=== PATIENT | male | born 1980 | race Hispanic/Latino ===

== ENCOUNTER 2017-09-03 06:04 | Emergency (ER) | payer SELFPAY ==
[2017-09-03 06:25] VITALS: BP 120/74
--- NOTE | 2017-09-03 06:38 | C.PDOC ---
History Of Present Illness 37 y/o male, with no PMHx, presents to the ED requesting Percocet and cocaine detox. Patient states last use was yesterday. Patient states he presents for evaluation due to his probation. Otherwise denies suicidal/homicidal ideation and has no physical complaints at this time. Time Seen by Provider: 09/03/17 06:37 Chief Complaint (Nursing): Substance Abuse History Per: Patient History/Exam Limitations: no limitations Onset/Duration Of Symptoms: Hrs Current Symptoms Are (Timing): Still Present Suicide/Self Injury Attempted (Context): None Modifying Factor(s): Cocaine, Other (percocet ) Associated Symptoms: denies: Suicidal Thoughts, Suicidal Plan Involuntary Hold By: None Recent travel outside of the [place]: No Additional History Per: Patient Past Medical History Reviewed: Historical Data, Nursing Documentation, Vital Signs Vital Signs: Last Vital Signs Temp 98 F 09/03/17 07:07 Pulse 80 09/03/17 07:07 Resp 20 09/03/17 07:07 BP 120/74 09/03/17 06:23 Pulse Ox 97 09/03/17 07:07 - Medical History PMH: No Chronic Diseases Surgical History: No Surg Hx - [facility] Procedures APPLICATION OF SPLINT (07/31/14) Family History: States: Unknown Family Hx - Social History Hx Tobacco Use: No Hx Alcohol Use: No Hx Substance Use: Yes - Immunization History Hx Tetanus Toxoid Vaccination: Yes Hx Influenza Vaccination: No Hx Pneumococcal Vaccination: No Review Of Systems Psych: Positive for: Other (perocet and cocaine detox ). Negative for: Suicidal ideation Physical Exam - Physical Exam Appears: Non-toxic, No Acute Distress Skin: Normal Color, Warm, Dry Head: Atraumatic, Normacephalic Eye(s): bilateral: Normal Inspection, EOMI Nose: Normal Oral Mucosa: Moist Neck: Normal ROM, Supple Chest: Symmetrical, No Deformity, No Tenderness Cardiovascular: Rhythm Regular Respiratory: Normal Breath Sounds, No Rales, No Rhonchi, No Wheezing Gastrointestinal/Abdominal: Soft, No Tenderness Extremity: Normal ROM, Capillary Refill (less than 2 seconds ) Neurological/Psych: Oriented x3, Normal Speech, Normal Cognition ED Course And Treatment O2 Sat by Pulse Oximetry: 98 (on RA) Pulse Ox Interpretation: Normal Progress Note: scale assembly set up worker spoke to pt, informed him there is no bed availability and gave him out pt resources. Disposition - Disposition Disposition: HOME/ ROUTINE Disposition Time: 06:37 Condition: STABLE Additional Instructions: Follow up with outpatient referrals as given. Call [phone] for bed availability. Instructions: Opioid Dependence (ED) Forms: [facility] (Italian) - Clinical Impression Clinical Impression: Drug abuse - PA / PREPRINT ANALYST / Resident Statement MD/DO has reviewed & agrees with the documentation as recorded. - Scribe Statement The provider has reviewed the documentation as recorded by the Scribe (Nena Meek) All medical record entries made by the Scribe were at my direction and personally dictated by me. I have reviewed the chart and agree that the record accurately reflects my personal performance of the history, physical exam, medical decision making, and the department course for this patient. I have also personally directed, reviewed, and agree with the discharge instructions and disposition.
[2017-09-03 07:16] VITALS: PULSE 80; RESP 20; TEMP 98
[2017-09-04 04:53] VITALS: O2SAT 98
== END 2017-09-03 07:26 | disposition home or self-care (01) ==
LOC: C.ER 06:04
DX: F19.10 Other psychoactive substance abuse, uncomplicated (principal)

== ENCOUNTER 2017-09-07 00:01 | Inpatient (IN) | payer MEDICAID ==
[2017-09-07 01:13] LABS: BASO % 0.3 % (0.0-2.0); EOS # 0.1 K/uL (0.0-0.7); EOS % 1.4 % (0.0-4.0); HEMOGLOBIN 13.2 g/dL (12.0-18.0); LYMPH # 1.9 K/uL (1.0-4.3); LYMPH % 22.3 % (20.0-40.0); MEAN CELL VOLUME 95.8 fL (80.0-94.0); MEAN CORPUSCULAR HEMOGLOBIN 33.5 pg (27.0-31.0); MEAN PLATELET VOLUME 8.1 fL (7.2-11.7); MONO # 0.8 K/uL (0.0-0.8); MONO % 8.7 % (0.0-10.0); NEUT # 5.9 K/uL (1.8-7.0); NEUT % 67.3 % (50.0-75.0); RBC 3.93 Mil/uL (4.40-5.90); RED CELL DISTRIBUTION WIDTH 13.7 % (11.5-14.5); WHITE BLOOD COUNT 8.7 K/uL (4.8-10.8)
[2017-09-07 01:14] LABS: URINE BACTERIA FEW (<OCC); URINE BILIRUBIN NEGATIVE (NEGATIVE); URINE BLOOD NEGATIVE (NEGATIVE); URINE CALCIUM OXALATE CRYSTALS OCC /hpf (<OCC); URINE CLARITY Hazy (Clear); URINE COLOR Yellow (YELLOW); URINE GLUCOSE (UA) NORMAL (Normal); URINE LEUKOCYTE ESTERASE NEG Leu/uL (Negative); URINE NITRATE NEGATIVE (NEGATIVE); URINE PROTEIN 1+ mg/dL (NEGATIVE)
[2017-09-07 01:22] LABS: BARBITURATES, UR NEGATIVE (NEGATIVE); BENZODIAZEPINES, UR NEGATIVE (NEGATIVE); OPIATES, UR NEGATIVE (NEGATIVE); PHENCYCLIDINE, UR NEGATIVE (NEGATIVE)
[2017-09-07 01:38] LABS: ACETAMINOPHEN < 10.0 ug/mL (10.0-30.0); SALICYLATE < 1.0 mg/dL 1
[2017-09-07 01:39] LABS: ALB/GLOB RATIO 1.5 (1.0-2.1); ALBUMIN 4.1 g/dL (3.5-5.0); ALT/SGPT 37 U/L (21-72); AST/SGOT 30 U/L (17-59); BLOOD UREA NITROGEN 10 mg/dL (9-20); GFR AFRICAN-AMERICAN > 60; GFR NON-AFRICAN AMERICAN > 60
--- NOTE | 2017-09-07 02:26 | C.PDOC ---
Time Seen by Provider: 09/07/17 00:41 Chief Complaint (Nursing): Psychiatric Evaluation History Per: Patient Onset/Duration Of Symptoms: Days Current Symptoms Are (Timing): Still Present Suicide/Self Injury Attempted (Context): None Modifying Factor(s): Marijuana, Narcotics, Cocaine Severity: Moderate Associated Symptoms: Depression, Suicidal Thoughts. denies: Suicidal Plan Additional History Per: Prior Records Past Medical History Reviewed: Historical Data, Nursing Documentation, Vital Signs Vital Signs: Last Vital Signs Temp 97.8 F 09/07/17 00:21 Pulse 76 09/07/17 00:21 Resp 20 09/07/17 00:21 BP 114/70 09/07/17 00:21 Pulse Ox 98 09/07/17 00:21 - Medical History PMH: No Chronic Diseases - [facility] Procedures APPLICATION OF SPLINT (07/31/14) Family History: States: Unknown Family Hx - Social History Hx Tobacco Use: No Hx Alcohol Use: No Hx Substance Use: Yes - Immunization History Hx Tetanus Toxoid Vaccination: Yes Hx Influenza Vaccination: No Hx Pneumococcal Vaccination: No Review Of Systems Except As Marked, All Systems Reviewed And Found Negative. Constitutional: Negative for: Fever Cardiovascular: Negative for: Chest Pain Respiratory: Negative for: Shortness of Breath Gastrointestinal: Negative for: Vomiting, Abdominal Pain Musculoskeletal: Negative for: Neck Pain Skin: Negative for: Rash Neurological: Negative for: Weakness, Numbness Psych: Negative for: Psychosis Physical Exam - Physical Exam Appears: Non-toxic, No Acute Distress Skin: Normal Color, Warm, Dry Head: Atraumatic, Normacephalic Eye(s): bilateral: PERRL, EOMI Neck: Normal ROM, Supple Cardiovascular: Rhythm Regular Respiratory: Normal Breath Sounds, No Accessory Muscle Use Gastrointestinal/Abdominal: Soft, No Tenderness Extremity: Normal ROM Neurological/Psych: Oriented x3, Normal Motor, Normal Sensation ED Course And Treatment - Laboratory Results Result Diagrams: 09/07/17 01:04 09/07/17 01:04 Lab Interpretation: No Acute Changes O2 Sat by Pulse Oximetry: 98 Pulse Ox Interpretation: Normal Progress Note: Pt is medically stable for psychiatric admission. Disposition Counseled Patient/Family Regarding: Studies Performed, Diagnosis - Disposition Disposition: HOSPITALIZED Disposition Time: 02:25 Condition: STABLE - Clinical Impression Clinical Impression: Drug abuse, Depressive disorder Decision To Admit - Pt Status Changed To: Hospital Disposition Of: Inpatient - Admit Certification Admit to Inpatient:: After my assessment, the patient will require hospitalization for at least two midnights. This is because of the severity of symptoms shown, intensity of services needed, and/or the medical risk in this patient being treated as an outpatient. - InPatient: Physician Admission Certification: I certify that this patient requires 2 or more midnights of care for the following reason:: Psych - . Bed Request Type: Psychiatry Admitting Physician: Naomi Carter Patient Diagnosis: Drug abuse, Depressive disorder
[2017-09-07 02:42] VITALS: RESP 16
--- NOTE | 2017-09-07 03:15 | PCM.BM ---
<Sandy Delarosa - Last Filed: 09/07/17 03:06> Treatment Plan Problems - Problems identified on initial assessmt Suicidal Ideations Date Initiated: 09/07/17 Time Initiated: 03:12 Assessment reference: NA Status: Active Treatment assets and liabiliti Patient Assests: cooperative, self-reliant, ADL independent, physically healthy , negotiates basic needs, cognitively intact Patient Liabilities: financial problems, poor support system, relationship conflicts, substance abuse - Milieu Protocol Maintain good personal hygiene: daily Encourage regular showers, other Remind patient to perform daily oral care (prn), other Assist patient to perform ADL's (prn) Conduct patient checks and document Observation sheet: Q15 minutes Maintain personal safety: every shift Monitor environment for contraband/sharps , other Educate patient to report safety concerns to staff (prn) Medication safety: Monitor for expected outcome, potential side effects: every shift, Assess barriers to learning: every shift, Assess readiness for medication education: every shift <Patricia Waggoner - Last Filed: 09/08/17 14:23> Family Contact Family involvement: Famliy/SO not involved - Goals for Treatment Patient goals for treatment: "I want to go home." Discharge/Continuing Care - Education Needs Education Needs: Patient Medication, Patient Placement options, Patient Community resources - Discharge Discharge Criteria: Tolerates medication w/o severe side effects, Free of Suicidal thoughts, Reduction of target symptoms Discharge to:: Home - Treatment Team Participation Discussed with Family/SO: No Was Patient/Family/SO present at Treatment Team Meeting: Yes
[2017-09-07 05:51] VITALS: TEMP 97.8; O2SAT 99
--- NOTE | 2017-09-07 10:20 | PCM.PSYCH ---
Initial Psychiatric Evaluation - Initial Psychiatric Evaluation Type of Admission: Voluntary Legal Status: Capacity Chief Complaint (in patient's own words): I was feeling depressed and suicidal.' History of Present Illness and Precipitating Events: 7yo White man self-referred to ED reportedly c/o suicide idx while under the influence of cocaine and THC; Pt reports the following: "I've been thinking about hurting myself;" I've been depressed from getting high off drugs;" Feeling like no need for me to be in this world;" Pt has had thoughts of suicide , without plan, "on and off" for the past "couple of months"; Pt also reported recent symptoms of insomnia and fluctuating appetite; Pt stated: "Sometimes I'm overly hunger, and sometimes I can't eat"; Pt denied having a hx of suicide attempts; Pt attributed the above symptoms to the following: "Problems getting myself together" and "getting high all the time"; Pt admitted to a daily abuse of "30 to 40mg" of Percocet and "one gram" on intranasal cocaine; Pt also abuses THC "every other day"; Pt denied being homeless, but reported staying with various family members from time to time; Pt requesting admission to [address] [place] [address]. Current Medications: Active Medications Generic Name Dose Route Start Last Admin Trade Name Freq PRN Reason Stop Dose Admin Clonidine HCl 0.1 mg 09/07/17 03:56 Catapres PO Q8 PRN COWS Score More or Equal to 5 Hydroxyzine HCl 25 mg 09/07/17 03:57 Atarax PO Q8H PRN Anxiety Ibuprofen 600 mg 09/07/17 03:58 Motrin Tab PO TID PRN Pain, moderate (4-7) Loperamide HCl 2 mg 09/07/17 03:56 Imodium PO Q8 PRN Diarrhea Ondansetron HCl 4 mg 09/07/17 03:56 Zofran Tab PO Q8 PRN Nausea/Vomiting Pneumococcal Polyvalent Vaccine 0.5 ml 09/10/17 10:00 Pneumovax 23 Vaccine IM 09/10/17 10:01 .ONCE ONE Trazodone HCl 50 mg 09/07/17 03:58 Desyrel PO HS PRN Insomnia Past Psychiatric History - Past Psychiatric History Previous Treatment History: None Pertinent Medical Hx (Current Medical&Sleep Prob, Allergies): Allergies Allergy/AdvReac Type Severity Reaction Status Date / Time No Known Allergies Allergy Verified 02/27/16 20:10 No Known Home Med 09/03/17 Review of Systems - Review of Systems All systems: reviewed and no additional remarkable complaints except - Psychiatric Psychiatric: Anxiety, Irritability, Suicidal Ideation Mental Status Examination - Personal Presentation Personal Presentation: Looks stated age - Affect Affect: Constricted, Depressed - Motor Activity Motor Activity: Calm - Reliability in Providing Information Reliability in Providing Information: Good - Speech Speech: Organized - Mood Mood: Depressed, Anxious - Formal Thought Process Formal Thought Process: No Impairment - Obsessions/Compulsions Obsessions: No Compulsions: No - Cognitive Functions Orientation: Person, Place, Situation, Time Sensorium: Alert Attention/Concentration: Attentive Abstract Thinking: Bartlett Estimate of Intelligence: Below average Judgement: Imparied, as evidence by: Poor judgement, Imparied, as evidence by: Lack of insight into illness - Risk Risk: Suicidal, Diminished functioning - Strength & Assets Inventory Strength & Assets Inventory: Intelligence - Limitations Limitations: Living alone DSM 5 DX - DSM 5 DSM 5 Diagnosis: Major depressive disorder recurrent severe without psychotic features Cocaine use severe Cannabis use moderate - Recommended/Plan of Treatment Treatment Recommendations and Plan of Treatment: Major depressive disorder recurrent severe without psychotic features Cocaine use severe Cannabis use moderate CBT Psychoeducation Supportive therapy, group therapy, individual therapy Zoloft 50 mg PO Daily Neurontin 100 mg by mouth 3 times a day Trazodone 50 mg by mouth daily at bedtime Use HI for abstinence PRN meds - Smoking Cessation Smoking Cessation Initiated: No
[2017-09-07 16:19] VITALS: BP 121/69; PULSE 66
--- NOTE | 2017-09-08 10:49 | PCM.PYCHPN ---
Psychiatric Progress Note - Psychiatric Progress Note Patient Chief Complaint: I was feeling depressed and suicidal.' Mental Status Examination - Cognitive Function Orientation: Person, Place, Situation, Time - Mood Mood: Depressed, Anxious - Affect Affect: Constricted, Depressed - Formal Thought Process Formal Thought Process: No Impairment - Homicidal Ideation Homicidal Ideation: No Goal/Treatment Plan - Goal/Treatment Plan Progress Toward Problem(s) and Goals/Treatment Plan: Major depressive disorder recurrent severe without psychotic features Cocaine use severe Cannabis use moderate CBT Psychoeducation Supportive therapy, group therapy, individual therapy Zoloft 50 mg PO Daily Neurontin 100 mg by mouth 3 times a day Trazodone 50 mg by mouth daily at bedtime Use PR for abstinence PRN meds
--- NOTE | 2017-09-08 11:39 | PCM.PYCHDC ---
Mental Status Examination - Mental Status Examination Orientation: Person, Place, Situation, Time Memory: Intact Mood: Other (irate) Affect: Constricted Speech: Appropriate Attention: WNL Concentration: Poor Association: WNL Fund of Knowledge: WNL Formal Thought Process: No Impairment Suicidal Ideation: No Current Homicidal Ideation?: No Discharge Summary - Discharge Note Reason for Hospitalization: Feeling depressed, suicidal, cocaine Consultations:: List each consultation separately and include: 1. Reason for request. 2. Findings. 3. Follow-up Summary of Hospital Course include:: 1. Description of specific treatment plan utilized for patients during their course of treatmen. 2. Summarize the time- course for resolution of acute symptoms and/or regressed behaviors. 3. Describe issues identified and worked on during hospitalization. 4. Describe medication utilized. 5. Describe medical problems identified and treated. 6. Reassessment of suicide risk Summary of Hospital Course: The pt was admitted and started on treatment with psychotherapy, support, psychoeducation and medications. SD and CBT used. All the risks and benefits of medications are discussed and the patient understood and agreed. The pt improved with the treatments provided, slowly but today he suddenly demanded for d/c He was already denying any major psych issues and claimed he lied to get in . he also claimed his number ne problem is cocaine. He claimed he had an appt at [facility] and also he is not homeless and he refused meds He was intense and irritable, but not an imminent risk to anyone or himself He is made aware of the risks of leaving AMA and he understood but still left - Final Diagnosis (DSM 5) Condition upon Discharge: STABLE DSM 5: Cocaine induced mood d/o Cocaine use d/o - severe Antisocial pers. d/o - traits Disposition: AGAINST MEDICAL ADVICE
[2017-09-10] MEDS ORDERED: Pneumococcal 23-Valent Vaccine IM ONE (10:00)
[2017-09-10] MEDS ORDERED: Influenza Vaccine 60 mcg/0.5 mL SYR (4YR UP) IM ONE (10:00)
== END 2017-09-08 12:49 | disposition left against medical advice (07) | DRG 894 ==
LOC: C.ER 00:01 → C.5E 02:26
PROVIDERS: ADMIT Psychiatry & Neurology Psychiatry; ATTEND Psychiatry & Neurology Psychiatry
PROC: GZ3ZZZZ Medication Management (ICD-10-PCS; principal; 2017-09-07)
PROC: HZ89ZZZ Medication Management for Substance Abuse Treatment, Other Replacement Medication (ICD-10-PCS; 2017-09-07)
PROC: GZHZZZZ Group Psychotherapy (ICD-10-PCS; 2017-09-07)
PROC: GZ5 Mental Health, Individual Psychotherapy (ICD-10-PCS; 2017-09-07)
DX: F14.24 Cocaine dependence with cocaine-induced mood disorder (principal); R45.851 Suicidal ideations; F12.90 Cannabis use, unspecified, uncomplicated; F60.2 Antisocial personality disorder

== ENCOUNTER 2018-05-10 21:16 | Emergency (ER) | payer MEDICAID ==
[2018-05-10 21:21] VITALS: BP 136/74; PULSE 95; TEMP 97.8; O2SAT 98
--- NOTE | 2018-05-10 22:06 | C.PDOC ---
History Of Present Illness 37 year old male presents to the ER with a complaint of right knee pain for the past few weeks. Patient states he hit it on an object 3 weeks ago, no direct fall or trauma. Today patient felt like his knee locked on him and feels like he is unable to bend the right knee. Denies weakness or numbness. Time Seen by Provider: 05/10/18 21:36 Chief Complaint (Nursing): Lower Extremity Problem/Injury History Per: Patient History/Exam Limitations: no limitations Onset/Duration Of Symptoms: Days Current Symptoms Are (Timing): Still Present Recent travel outside of the [place]: No - Knee Description Of Injury: Struck Against Object Past Medical History Reviewed: Historical Data, Nursing Documentation, Vital Signs Vital Signs: Last Vital Signs Temp 97.8 F 05/10/18 21:19 Pulse 95 H 05/10/18 21:19 Resp 16 05/10/18 21:19 BP 136/74 05/10/18 21:19 Pulse Ox 98 05/10/18 21:19 - Medical History PMH: Anxiety, Depression Denies: Diabetes, Hepatitis, HIV, HTN, Chronic Kidney Disease, Seizures, Sexually Transmitted Disease - [facility] Procedures APPLICATION OF SPLINT (07/31/14) GROUP PSYCHOTHERAPY (09/07/17) INDIVIDUAL PSYCHOTHERAPY, PSYCHOPHYSIOLOGICAL (09/07/17) MEDICATION MANAGEMENT (09/07/17) MEDS MGMT FOR SUBSTANCE ABUSE TREATMENT, OTH REPL MED (09/07/17) Family History: States: Unknown Family Hx - Social History Hx Tobacco Use: No Hx Alcohol Use: Yes Hx Substance Use: No - Immunization History Hx Tetanus Toxoid Vaccination: Yes Hx Influenza Vaccination: No Hx Pneumococcal Vaccination: No Review Of Systems Musculoskeletal: Positive for: Other (Right knee pain) Neurological: Negative for: Weakness, Numbness Physical Exam - Physical Exam Appears: Non-toxic Skin: Normal Color, Warm, Dry Head: Atraumatic, Normacephalic Eye(s): bilateral: Normal Inspection Extremity: Normal ROM (x4), Capillary Refill (<2 seconds), Other (Minimal tenderness to anterior right knee) Pulses: Left Dorsalis Pedis: Normal, Right Dorsalis Pedis: Normal Neurological/Psych: Oriented x3, Normal Speech, Normal Motor, Normal Sensation Gait: Steady ED Course And Treatment O2 Sat by Pulse Oximetry: 98 (room air) Pulse Ox Interpretation: Normal Progress Note: Motrin given for pain and marcelina wrap applied for support. Patient is ambulatory in the ER with steady gait, vitals are stable, will discharge home with instructions to follow up with PMD. Disposition Counseled Patient/Family Regarding: Diagnosis, Need For Followup - Disposition Referrals: Estefany Robertson [Outside] Disposition: HOME/ ROUTINE Disposition Time: 22:02 Condition: STABLE Additional Instructions: Please follow up with PMD Take motrin for pain Follow up in clinic Return to ER if worse Prescriptions: Ibuprofen [Motrin] 600 mg PO Q6H #20 tab Instructions: Knee Pain (DC) Forms: [facility] (Armenian) - Clinical Impression Clinical Impression: Knee pain, right - PA / REVIEW ASSISTANT / Resident Statement MD/DO has reviewed & agrees with the documentation as recorded. - Scribe Statement The provider has reviewed the documentation as recorded by the Scribtammi Garg All medical record entries made by the Scribtammi were at my direction and personally dictated by me. I have reviewed the chart and agree that the record accurately reflects my personal performance of the history, physical exam, medical decision making, and the department course for this patient. I have also personally directed, reviewed, and agree with the discharge instructions and disposition.
[2018-05-10 22:43] VITALS: RESP 20
== END 2018-05-10 22:41 | disposition home or self-care (01) ==
LOC: C.ER 21:16
DX: M25.561 Pain in right knee (principal)

== ENCOUNTER 2018-05-18 22:50 | Inpatient (IN) | payer MEDICAID ==
[2018-05-19 00:09] LABS: MEAN PLATELET VOLUME 7.9 fL (7.2-11.7); RBC 4.54 Mil/uL (4.40-5.90)
[2018-05-19 00:16] LABS: BASO # 0.1 K/uL (0.0-0.2); BASO % 0.8 % (0.0-2.0); EOS # 0.2 K/uL (0.0-0.7); EOS % 2.2 % (0.0-4.0); HEMOGLOBIN 14.8 g/dL (12.0-18.0); LYMPH # 2.4 K/uL (1.0-4.3); MEAN CELL VOLUME 94.8 fL (80.0-94.0); MEAN CORPUSCULAR HEMOGLOBIN 32.5 pg (27.0-31.0); MEAN CORPUSCULAR HGB CONC 34.3 g/dL (33.0-37.0); MONO % 8.7 % (0.0-10.0); NEUT # 7.5 K/uL (1.8-7.0); NEUT % 67.3 % (50.0-75.0); RED CELL DISTRIBUTION WIDTH 13.8 % (11.5-14.5); WHITE BLOOD COUNT 11.2 K/uL (4.8-10.8)
[2018-05-19 00:44] LABS: ALB/GLOB RATIO 1.6 (1.0-2.1); ALBUMIN 4.9 g/dL (3.5-5.0); ALT/SGPT 22 U/L (21-72); AST/SGOT 27 U/L (17-59); BARBITURATES, UR NEGATIVE (NEGATIVE); BENZODIAZEPINES, UR NEGATIVE (NEGATIVE); BLOOD UREA NITROGEN 20 mg/dL (9-20); CALCIUM 9.4 mg/dl (8.6-10.4); GFR NON-AFRICAN AMERICAN > 60; OPIATES, UR NEGATIVE (NEGATIVE)
[2018-05-19 00:49] LABS: PHENCYCLIDINE, UR POSITIVE (NEGATIVE)
[2018-05-19 00:53] LABS: SQUAMOUS EPITHIAL < 1 /hpf (0-5); URINE BACTERIA RARE (<OCC); URINE BILIRUBIN NEGATIVE (NEGATIVE); URINE BLOOD NEGATIVE (NEGATIVE); URINE CLARITY Clear (Clear); URINE COLOR Yellow (YELLOW); URINE GLUCOSE (UA) NORMAL (Normal); URINE LEUKOCYTE ESTERASE NEG Leu/uL (Negative); URINE PROTEIN NEGATIVE (NEGATIVE)
--- NOTE | 2018-05-19 01:19 | C.PDOC ---
History Of Present Illness 37 y/o male presents to the ED complaining of having suicidal thoughts for the past month, worsening over the past few days. He has no specific plan but states he has thought of a million ways to. Denies any hallucinations or homicidal ideation. Patient reports using cocaine and marijuana. Denies any alcohol use, other drug use. Denies prior history of psychiatric disorders. Time Seen by Provider: 05/18/18 23:11 Chief Complaint (Nursing): Psychiatric Evaluation History Per: Patient History/Exam Limitations: no limitations Onset/Duration Of Symptoms: Days Current Symptoms Are (Timing): Worse Suicide/Self Injury Attempted (Context): None Modifying Factor(s): Marijuana, Cocaine Associated Symptoms: Suicidal Thoughts. denies: Suicidal Plan Involuntary Hold By: None Past Medical History Reviewed: Historical Data, Nursing Documentation, Vital Signs Vital Signs: Last Vital Signs Temp 97.6 F 05/18/18 22:55 Pulse 91 H 05/18/18 22:55 Resp 20 05/18/18 22:55 BP 118/73 05/18/18 22:55 Pulse Ox 97 05/18/18 22:55 - Medical History PMH: Anxiety, Depression Denies: Diabetes, Hepatitis, HIV, HTN, Chronic Kidney Disease, Seizures, Sexually Transmitted Disease - [facility] Procedures APPLICATION OF SPLINT (07/31/14) GROUP PSYCHOTHERAPY (09/07/17) INDIVIDUAL PSYCHOTHERAPY, PSYCHOPHYSIOLOGICAL (09/07/17) MEDICATION MANAGEMENT (09/07/17) MEDS MGMT FOR SUBSTANCE ABUSE TREATMENT, OTH REPL MED (09/07/17) Family History: States: Unknown Family Hx - Social History Hx Tobacco Use: No Hx Alcohol Use: No Hx Substance Use: Yes - Immunization History Hx Tetanus Toxoid Vaccination: Yes Hx Influenza Vaccination: No Hx Pneumococcal Vaccination: No Review Of Systems Constitutional: Negative for: Fever Cardiovascular: Negative for: Chest Pain Respiratory: Negative for: Shortness of Breath Gastrointestinal: Negative for: Nausea, Vomiting Neurological: Negative for: Weakness, Headache Psych: Positive for: Suicidal ideation (without plan). Negative for: Other (homicidal ideation, a/v hallucinations) Physical Exam - Physical Exam Appears: Non-toxic, No Acute Distress Skin: Normal Color, Warm, Dry Head: Atraumatic, Normacephalic Eye(s): bilateral: Normal Inspection, PERRL, EOMI Oral Mucosa: Moist Neck: Normal ROM Chest: Symmetrical Cardiovascular: Rhythm Regular, No Murmur Respiratory: Normal Breath Sounds, No Accessory Muscle Use Gastrointestinal/Abdominal: Soft, No Tenderness, No Distention Extremity: Bilateral: Atraumatic, Normal Color And Temperature, Normal ROM Neurological/Psych: Oriented x3, Normal Speech ED Course And Treatment - Laboratory Results Result Diagrams: 05/18/18 23:59 05/18/18 23:59 O2 Sat by Pulse Oximetry: 97 (RA) Pulse Ox Interpretation: Normal Medical Decision Making Medical Decision Making: Impression: Suicidal Ideation Plan: --CMP --Alcohol serum --UDS --Magnesium --Phosphorous --CBC --UA --Pending crisis evaluation Labs reviewed, U-tox (+) for PCP and cannabinoids. 6:00am Spoke with rice field worker, who evaluated patient and discussed with Dr. Wheeler. As per Dr. Wheeler, due to patient's agitation and lack of cooperation, requests that patient remain in the ED and crisis will reassess when patient is calm again. DX: Cocaine use disorder, unspecified depressive disorder Patient admitted to Dr. Wheeler. Disposition - Disposition Disposition: HOSPITALIZED Disposition Time: 07:00 Condition: STABLE Forms: [facility] (Gambian) - Clinical Impression Clinical Impression: Depression, Cocaine abuse - Scribe Statement The provider has reviewed the documentation as recorded by the Scribe (Rafaela Dominguez) Provider Attestation: All medical record entries made by the Scribe were at my direction and personally dictated by me. I have reviewed the chart and agree that the record accurately reflects my personal performance of the history, physical exam, medical decision making, and the department course for this patient. I have also personally directed, reviewed, and agree with the discharge instructions and disposition. Physician Patient Turnover Patient Signed Over To: Mayela Moore (pending final dispo from crisis)
[2018-05-19 08:13] VITALS: RESP 18
--- NOTE | 2018-05-19 11:08 | PCM.PSYCH ---
Initial Psychiatric Evaluation - Initial Psychiatric Evaluation Type of Admission: Voluntary Legal Status: Capacity Chief Complaint (in patient's own words): "I was depressed" History of Present Illness and Precipitating Events: He is seen, chart reviewed, and case discussed. He is a 37 year old male who is single with 2 children. His children are 18 and 19 years old. He has not been employed for 8 months and is living with his br other and uncle. He has been having suicidal ideations for the past month that has worsened over the past few days. He does not have a plan but has thought of numerous ways to commit suicide. He denies prior suicide attempts. He states he uses 1-2 blunts of marijuana daily. He began using marijuana when he was 14 years old and he last used yesterday. Pt also sniffs cocaine and began using at 21 years old. He takes in $40 worth of cocaine daily. He smokes 1-2 cigarettes every other day. He uses PCP too but he wouldn't elaborate. He denies use of heroin, oxycontin, alcohol or other substances. He denies having been hospitalized for a psychiatric condition previously. He once attended a program due to being on probation before. Pt denies hallucinations but looks paranoid and very odd, thought disordered. he is also irate. Past Medical History: Denies Family history: Denies Psychiatric history: Denies Legal history: Arrested once for theft Past Psychiatric History - Past Psychiatric History Previous Treatment History: None Pertinent Medical Hx (Current Medical&Sleep Prob, Allergies): Allergies Allergy/AdvReac Type Severity Reaction Status Date / Time No Known Allergies Allergy Verified 02/27/16 20:10 No Known Home Med 05/19/18 Review of Systems - Neurological Neurological: UNREMARKABLE - Psychiatric Psychiatric: Abnormal Sleep Pattern, Anhedonia, Anxiety, Change in Appetite, Depression, Difficulty Concentrating, Irritability, Mood Swings, Paranoia. absent: Hallucinations, Homicidal Ideation, Suicidal Ideation Mental Status Examination - Personal Presentation Personal Presentation: Looks older than stated age (odd looking, unkempt, maegan=odorous) - Affect Affect: Constricted - Motor Activity Motor Activity: Other (restless, fidgety) - Reliability in Providing Information Reliability in Providing Information: Fair - Speech Speech: Organized - Mood Mood: Depressed, Other (irate) - Formal Thought Process Formal Thought Process: Paranoia - Cognitive Functions Orientation: Person, Place, Situation, Time Sensorium: Alert Attention/Concentration: Easily distracted Abstract Thinking: [place] Estimate of Intelligence: Below average Judgement: Imparied, as evidence by: Poor judgement Memory: Recent intact, as evidence by: Ability to recall events of the day, Remote impaired as evidenced by: Inability to recall sig life events - Risk Risk: Diminished functioning - Strength & Assets Inventory Strength & Assets Inventory: Family support - Limitations Limitations: Other DSM 5 DX - DSM 5 DSM 5 Diagnosis: Schizoaffective d/o - depressed Cocaine use d/o severe Cannabis use d/o severe PCP use d/o - unspecified severity - Recommended/Plan of Treatment Treatment Recommendations and Plan of Treatment: Start Abilify and remeron for schizoaffective-depression Ativan for anxiety, PCP-related aggression He refused meds but he will "think about them" As need medications All risks, benefits and alternatives of the meds discussed, and the pt agreed and understood. Attend groups and activities Individual therapy daily Psychoeducation and support daily Encourage compliance with meds and after care Refer to outpatient program Teach healthy lifestyle methods, i.e. diet, exercise, meditation Smoking cessation and patch if needed 32 min Projected ELOS: 3-4 days Prognosis: good with treatment
--- NOTE | 2018-05-19 11:23 | PCM.BM ---
<Luci Jeffrey - Last Filed: 05/19/18 11:20> Treatment Plan Problems - Problems identified on initial assessmt Depression Date Initiated: 05/19/18 Time Initiated: 11:21 Assessment reference: NA Status: Active substance abuse Date Initiated: 05/19/18 Time Initiated: 11:22 Assessment reference: NA Status: Active Treatment assets and liabiliti Patient Assests: cooperative, motivated, self-reliant, ADL independent, physically healthy, negotiates basic needs, cognitively intact Patient Liabilities: financial problems, substance abuse - Milieu Protocol Maintain good personal hygiene: daily Encourage regular showers Conduct patient checks and document Observation sheet: Q15 minutes Maintain personal safety: every shift Educate patient to report safety concerns to staff, every shift Monitor environment for contraband/sharps Medication safety: Monitor for expected outcome, potential side effects: every shift, Assess barriers to learning: every shift, Assess readiness for medication education: every shift <Carmen King - Last Filed: 05/19/18 15:12> - Diagnosis (1) Cocaine abuse Status: Acute Interventions: 05/19/18 15:12 * Assess 7x/week * Educate regarding risks, benefits, side effects and alternatives of medications * Use Motivational Interviewing for abstinence * Use CBT for relapse prevention * Medication management for withdrawal symptoms * Encourage medication assisted treatment * (2) Depression Status: Acute Interventions: 05/19/18 15:12 * Assess/adjust medications daily and /or as needed * See patient on an individual basis 7x/week to assess symptoms of depression * Monitor for side effects & effectiveness of medications * <Barbara Alvarado - Last Filed: 05/19/18 15:33> Family Contact Family involvement: Patient does not wish Family/SO involvement Family contact: Patient declines to allow family contact at present - Goals for Treatment Patient goals for treatment: "I want to go to [facility] outpatient program." Discharge/Continuing Care - Education Needs Education Needs: Patient Medication, Patient Diagnosis/Disease Process, Patient Coping Skills - Discharge Discharge Criteria: Free of Suicidal thoughts, Free of paranoid thoughts, Normal sleep pattern, Ability to care for self, No longer exhibiting s/s of withdrawal, Reduction of target symptoms Discharge to:: Home - Treatment Team Participation Discussed with Family/SO: No Was Patient/Family/SO present at Treatment Team Meeting: Yes
[2018-05-20 06:53] VITALS: BP 110/57; PULSE 56; TEMP 97.5; O2SAT 98
--- NOTE | 2018-05-20 10:35 | PCM.PYCHDC ---
Mental Status Examination - Mental Status Examination Orientation: Person, Place, Situation, Time Memory: Intact Mood: Anxious Affect: Broad Speech: Appropriate Attention: WNL Concentration: WNL Association: WNL Fund of Knowledge: WNL Formal Thought Process: No Impairment Suicidal Ideation: No Current Homicidal Ideation?: No Discharge Summary - Discharge Note Reason for Hospitalization: Severe depression Consultations:: List each consultation separately and include: 1. Reason for request. 2. Findings. 3. Follow-up Summary of Hospital Course include:: 1. Description of specific treatment plan utilized for patients during their course of treatmen. 2. Summarize the time- course for resolution of acute symptoms and/or regressed behaviors. 3. Describe issues identified and worked on during hospitalization. 4. Describe medication utilized. 5. Describe medical problems identified and treated. 6. Reassessment of suicide risk Summary of Hospital Course: On Admission: He is seen, chart reviewed, and case discussed. He is a 37 year old male who is single with 2 children. His children are 18 and 19 years old. He has not been employed for 8 months and is living with his brother and uncle. He has been having suicidal ideations for the past month that has worsened over the past few days. He does not have a plan but has thought of numerous ways to commit suicide. He denies prior suicide attempts. He states he uses 1-2 blunts of marijuana daily. He began using marijuana when he was 14 years old and he last used yesterday. Pt also sniffs cocaine and began using at 21 years old. He takes in $40 worth of cocaine daily. He smokes 1-2 cigarettes every other day. He uses PCP too but he wouldn't elaborate. He denies use of heroin, oxycontin, alcohol or other substances. He denies having been hospitalized for a psychiatric condition previously. He once attended a program due to being on p robation before. Pt denies hallucinations but looks paranoid and very odd, thought disordered. he is also irate. Past Medical History: Denies Family history: Denies Psychiatric history: Denies Legal history: Arrested once for theft Hospital course: The pt was admitted and started on treatment with psychotherapy, support, psychoeducation and medications. All the risks and benefits of medications are discussed and the patient understood and agreed. The pt decided to leave [place] quickly He was no longer suicidal or at imminent risk All risks discussed, incl. relapse, even but he still left After care discussed with the patient. Recommendations are made. - Final Diagnosis (DSM 5) Condition upon Discharge: STABLE DSM 5: Schizoaffective d/o - depressed Cocaine use d/o severe Cannabis use d/o severe PCP use d/o - unspecified severity Disposition: AGAINST MEDICAL ADVICE Follow-up Treatment Plan: Return to ER or call 911 if suicidal, homicidal or symptoms relapse. Stay away from stress, alcohol and drugs. See primary doctor regularly and get labs.
== END 2018-05-20 13:44 | disposition left against medical advice (07) | DRG 750 ==
LOC: C.ER 22:50 → C.9E 05-19 07:13 → C.5E 05-19 07:46
PROC: GZHZZZZ Group Psychotherapy (ICD-10-PCS; principal; 2018-05-19)
PROC: HZ46ZZZ Group Counseling for Substance Abuse Treatment, Psychoeducation (ICD-10-PCS; 2018-05-19)
PROC: GZ56ZZZ Individual Psychotherapy, Supportive (ICD-10-PCS; 2018-05-19)
DX: F25.1 Schizoaffective disorder, depressive type (principal); F14.20 Cocaine dependence, uncomplicated; F16.10 Hallucinogen abuse, uncomplicated; R45.851 Suicidal ideations; F12.20 Cannabis dependence, uncomplicated; F32.9 Major depressive disorder, single episode, unspecified; F17.210 Nicotine dependence, cigarettes, uncomplicated; Z53.29 Procedure and treatment not carried out because of patient's decision for other reasons

== ENCOUNTER 2018-07-22 21:53 | Emergency (ER) | payer MEDICAID ==
[2018-07-22 22:15] VITALS: RESP 18
[2018-07-22 23:17] LABS: BASO % 0.5 % (0.0-2.0); EOS # 0.2 K/uL (0.0-0.7); EOS % 2.5 % (0.0-4.0); HEMOGLOBIN 12.2 g/dL (12.0-18.0); LYMPH # 1.6 K/uL (1.0-4.3); LYMPH % 25.6 % (20.0-40.0); MEAN CELL VOLUME 96.5 fL (80.0-94.0); MEAN CORPUSCULAR HEMOGLOBIN 32.9 pg (27.0-31.0); MEAN CORPUSCULAR HGB CONC 34.1 g/dL (33.0-37.0); MEAN PLATELET VOLUME 8.3 fL (7.2-11.7); MONO # 0.4 K/uL (0.0-0.8); MONO % 6.8 % (0.0-10.0); NEUT # 4.1 K/uL (1.8-7.0); NEUT % 64.6 % (50.0-75.0); NRBC % 0.1 % (0.0-2.0); RBC 3.71 Mil/uL (4.40-5.90); RED CELL DISTRIBUTION WIDTH 13.4 % (11.5-14.5); WHITE BLOOD COUNT 6.3 K/uL (4.8-10.8)
[2018-07-22 23:27] LABS: SQUAMOUS EPITHIAL < 1 /hpf (0-5); URINE AMORPHOUS SEDIMENT RARE /ul (<OCC); URINE BACTERIA FEW (<OCC); URINE BILIRUBIN NEGATIVE (NEGATIVE); URINE BLOOD NEGATIVE (NEGATIVE); URINE CLARITY Hazy (Clear); URINE COLOR Yellow (YELLOW); URINE GLUCOSE (UA) NORMAL (Normal); URINE LEUKOCYTE ESTERASE NEG Leu/uL (Negative); URINE PROTEIN NEGATIVE (NEGATIVE)
[2018-07-22 23:29] LABS: ACETAMINOPHEN < 10.0 ug/mL (10.0-30.0); SALICYLATE < 1.0 mg/dL 1
[2018-07-22 23:31] LABS: ALB/GLOB RATIO 1.9 (1.0-2.1); ALBUMIN 4.2 g/dL (3.5-5.0); ALT/SGPT 25 U/L (21-72); AST/SGOT 15 U/L (17-59); BLOOD UREA NITROGEN 18 mg/dL (9-20); CALCIUM 8.4 mg/dl (8.6-10.4); GFR NON-AFRICAN AMERICAN > 60
[2018-07-22 23:38] LABS: BENZODIAZEPINES, UR NEGATIVE (NEGATIVE); OPIATES, UR NEGATIVE (NEGATIVE)
[2018-07-22 23:41] LABS: BARBITURATES, UR NEGATIVE (NEGATIVE)
[2018-07-22 23:44] LABS: PHENCYCLIDINE, UR POSITIVE (NEGATIVE)
--- NOTE | 2018-07-22 23:52 | C.PDOC ---
History Of Present Illness 38 year old male presents to the ED for evaluation of suicidal and homicidal ideations for the past week. Patient reports " I am afraid I will hurt myself and others". Patient denies hallucinations, CP, SOB, injury, fall, trauma. Time Seen by Provider: 07/22/18 23:02 Chief Complaint (Nursing): Psychiatric Evaluation History Per: Patient History/Exam Limitations: no limitations Onset/Duration Of Symptoms: Days Current Symptoms Are (Timing): Still Present Modifying Factor(s): None Associated Symptoms: Depression, Suicidal Thoughts. denies: Suicidal Plan Recent travel outside of the [place]: No Additional History Per: Patient Past Medical History Reviewed: Historical Data, Nursing Documentation, Vital Signs Vital Signs: Last Vital Signs Temp 98 F 07/22/18 22:12 Pulse 78 07/22/18 22:12 Resp 18 07/22/18 22:12 BP 136/76 07/22/18 22:12 Pulse Ox 98 07/22/18 22:12 - Medical History PMH: Anxiety, Depression Denies: Diabetes, Hepatitis, HIV, HTN, Chronic Kidney Disease, Seizures, Sexually Transmitted Disease Surgical History: No Surg Hx - [facility] Procedures APPLICATION OF SPLINT (07/31/14) GROUP AIRCRAFT ARMAMENT MECHANIC FOR SUBSTANCE ABUSE TREATMENT, PSYCHOEDUCATION (05/19/18) GROUP PSYCHOTHERAPY (05/19/18) INDIVIDUAL PSYCHOTHERAPY, PSYCHOPHYSIOLOGICAL (09/07/17) INDIVIDUAL PSYCHOTHERAPY, SUPPORTIVE (05/19/18) MEDICATION MANAGEMENT (09/07/17) MEDS MGMT FOR SUBSTANCE ABUSE TREATMENT, OTH REPL MED (09/07/17) Family History: States: Unknown Family Hx - Social History Hx Tobacco Use: No Hx Alcohol Use: No Hx Substance Use: Yes - Immunization History Hx Tetanus Toxoid Vaccination: Yes Hx Influenza Vaccination: No Hx Pneumococcal Vaccination: No Review Of Systems Constitutional: Negative for: Fever, Chills Cardiovascular: Negative for: Chest Pain, Palpitations Respiratory: Negative for: Shortness of Breath Gastrointestinal: Negative for: Nausea, Vomiting, Abdominal Pain Skin: Negative for: Rash Psych: Positive for: Depression, Suicidal ideation Physical Exam - Physical Exam Appears: Non-toxic, No Acute Distress Skin: Normal Color, Warm, Dry Head: Atraumatic, Normacephalic Eye(s): bilateral: Normal Inspection Neck: Normal ROM, Supple Chest: Symmetrical Cardiovascular: Rhythm Regular Respiratory: Normal Breath Sounds, No Rales, No Rhonchi, No Wheezing Gastrointestinal/Abdominal: Soft, No Tenderness, No Guarding, No Rebound Extremity: Normal ROM, No Tenderness, No Swelling Neurological/Psych: Oriented x3, Normal Speech, Normal Cognition Gait: Steady ED Course And Treatment - Laboratory Results Result Diagrams: 07/22/18 23:14 07/22/18 23:14 Lab Interpretation: Abnormal (asa/tylenol neg, tox + PCP, cocaine, THC, ETOH neg.) O2 Sat by Pulse Oximetry: 98 (ON RA) Pulse Ox Interpretation: Normal Medical Decision Making Medical Decision Making: Plan: * Labs * UA * 1:1 Obs * Crisis eval polysubstance abuse including PCP has left AMA after 1 night on psych in 2 prior evals Psych defers inpt eval and recommends opt f/u. Escorted from ED w Security assistance Disposition Doctor Will See Patient In The: Office Counseled Patient/Family Regarding: Studies Performed, Diagnosis - Disposition Referrals: Alcoholics Anonymous [Outside] [facility] [Outside] [facility] [Outside] [facility] [Outside] [facility] [Outside] Disposition: HOME/ ROUTINE Disposition Time: 00:50 Condition: GOOD Additional Instructions: avoid polysubstance abuse Seek nightly residential placement Seek outpatient psych services/counseling/substance abuse programs. Instructions: Polysubstance Abuse, Polysubstance Abuse (DC) Forms: [facility] (Colombian) - Clinical Impression Clinical Impression: Polysubstance abuse - Scribe Statement The provider has reviewed the documentation as recorded by the Scribe Chalo Tripp All medical record entries made by the Scribe were at my direction and personally dictated by me. I have reviewed the chart and agree that the record accurately reflects my personal performance of the history, physical exam, medical decision making, and the department course for this patient. I have also personally directed, reviewed, and agree with the discharge instructions and disposition.
[2018-07-23 00:43] VITALS: BP 116/61; PULSE 76; TEMP 98.4
[2018-07-23 00:50] VITALS: O2SAT 98
== END 2018-07-23 01:21 | disposition home or self-care (01) ==
LOC: C.ER 21:53
DX: F19.10 Other psychoactive substance abuse, uncomplicated (principal)

== ENCOUNTER 2018-10-02 23:46 | Inpatient (IN) | payer SELFPAY ==
--- NOTE | 2018-10-03 01:57 | C.PDOC ---
History Of Present Illness 38 year old male presents with suicidal ideation for the past 2 days. Denies any specific OD with medication or plan. Chief Complaint (Nursing): Psychiatric Evaluation History Per: Patient History/Exam Limitations: no limitations Onset/Duration Of Symptoms: Days Current Symptoms Are (Timing): Still Present Suicide/Self Injury Attempted (Context): None Associated Symptoms: Suicidal Thoughts. denies: Suicidal Plan Involuntary Hold By: None Recent travel outside of the [place]: No Past Medical History Reviewed: Historical Data, Nursing Documentation, Vital Signs Vital Signs: Last Vital Signs Temp 98.2 F 10/03/18 00:14 Pulse 78 10/03/18 00:14 Resp 18 10/03/18 00:14 BP 109/67 10/03/18 00:14 Pulse Ox 99 10/03/18 00:14 - Medical History PMH: Anxiety, Depression Denies: Diabetes, Hepatitis, HIV, HTN, Chronic Kidney Disease, Seizures, Sexually Transmitted Disease - [facility] Procedures APPLICATION OF SPLINT (07/31/14) GROUP ADVISORY SERVICES ASSOCIATE FOR SUBSTANCE ABUSE TREATMENT, PSYCHOEDUCATION (05/19/18) GROUP PSYCHOTHERAPY (05/19/18) INDIVIDUAL PSYCHOTHERAPY, PSYCHOPHYSIOLOGICAL (09/07/17) INDIVIDUAL PSYCHOTHERAPY, SUPPORTIVE (05/19/18) MEDICATION MANAGEMENT (09/07/17) MEDS MGMT FOR SUBSTANCE ABUSE TREATMENT, OTH REPL MED (09/07/17) Family History: States: Unknown Family Hx - Social History Hx Tobacco Use: No Hx Alcohol Use: Yes Hx Substance Use: Yes - Immunization History Hx Tetanus Toxoid Vaccination: Yes Hx Influenza Vaccination: No Hx Pneumococcal Vaccination: No Review Of Systems Constitutional: Negative for: Fever, Chills Cardiovascular: Negative for: Chest Pain, Palpitations Respiratory: Negative for: Cough, Shortness of Breath Gastrointestinal: Negative for: Nausea, Vomiting Neurological: Negative for: Weakness, Numbness Psych: Positive for: Suicidal ideation Physical Exam - Physical Exam Appears: Non-toxic Skin: Normal Color, Warm, Dry Head: Atraumatic, Normacephalic Eye(s): bilateral: Normal Inspection Oral Mucosa: Moist Chest: Symmetrical, No Tenderness Cardiovascular: Rhythm Regular Respiratory: Normal Breath Sounds, No Rales, No Rhonchi, No Wheezing Gastrointestinal/Abdominal: Soft, No Tenderness Neurological/Psych: Oriented x3, Normal Speech ED Course And Treatment - Laboratory Results Result Diagrams: 10/03/18 02:09 10/03/18 02:09 O2 Sat by Pulse Oximetry: 99 (Room air) Pulse Ox Interpretation: Normal Progress Note: Blood work and urinalysis ordered. Disposition - Disposition Referrals: Non [facility] Provider, [Primary Care Provider] - Disposition Time: 05:20 Condition: STABLE Forms: [facility] (Serbian) - Clinical Impression Clinical Impression: Major depressive disorder, Cocaine use disorder - Scribe Statement The provider has reviewed the documentation as recorded by the Scribtammi Garg All medical record entries made by the Scribe were at my direction and personally dictated by me. I have reviewed the chart and agree that the record accurately reflects my personal performance of the history, physical exam, medical decision making, and the department course for this patient. I have also personally directed, reviewed, and agree with the discharge instructions and disposition.
[2018-10-03 02:13] LABS: EOS % 0.6 % (0.0-4.0); HEMOGLOBIN 12.5 g/dL (12.0-18.0); LYMPH % 13.6 % (20.0-40.0); MEAN CELL VOLUME 97.1 fL (80.0-94.0); MEAN CORPUSCULAR HEMOGLOBIN 32.6 pg (27.0-31.0); MEAN CORPUSCULAR HGB CONC 33.5 g/dL (33.0-37.0); MEAN PLATELET VOLUME 8.4 fL (7.2-11.7); MONO % 5.3 % (0.0-10.0); NEUT % 80.2 % (50.0-75.0); RBC 3.84 Mil/uL (4.40-5.90); RED CELL DISTRIBUTION WIDTH 13.4 % (11.5-14.5)
[2018-10-03 02:14] LABS: BASO % 0.3 % (0.0-2.0); EOS # 0.1 K/uL (0.0-0.7); LYMPH # 1.6 K/uL (1.0-4.3); MONO # 0.6 K/uL (0.0-0.8); NEUT # 9.6 K/uL (1.8-7.0)
[2018-10-03 02:27] LABS: ALB/GLOB RATIO 1.6 (1.0-2.1); ALBUMIN 4.1 g/dL (3.5-5.0); ALT/SGPT 39 U/L (21-72); AST/SGOT 33 U/L (17-59); BLOOD UREA NITROGEN 18 mg/dL (9-20); CALCIUM 8.9 mg/dl (8.6-10.4); GFR NON-AFRICAN AMERICAN > 60
[2018-10-03 03:15] LABS: SQUAMOUS EPITHIAL < 1 /hpf (0-5); URINE BILIRUBIN NEGATIVE (NEGATIVE); URINE BLOOD NEGATIVE (NEGATIVE); URINE CLARITY Clear (Clear); URINE COLOR Yellow (YELLOW); URINE GLUCOSE (UA) NORMAL (Normal); URINE LEUKOCYTE ESTERASE NEG Leu/uL (Negative); URINE PROTEIN NEGATIVE (NEGATIVE); URINE UROBILINOGEN NORMAL mg/dL (0.2-1.0)
[2018-10-03 03:40] LABS: BARBITURATES, UR NEGATIVE (NEGATIVE); BENZODIAZEPINES, UR NEGATIVE (NEGATIVE); OPIATES, UR NEGATIVE (NEGATIVE); PHENCYCLIDINE, UR NEGATIVE (NEGATIVE)
[2018-10-03 05:32] VITALS: RESP 18; O2SAT 96
--- NOTE | 2018-10-03 06:24 | PCM.BM ---
Treatment Plan Problems - Problems identified on initial assessmt Suicidal Ideation Date Initiated: 10/03/18 Time Initiated: 05:50 Assessment reference: NA Status: Monitor Defensive Coping Date Initiated: 10/03/18 Time Initiated: 05:50 Assessment reference: NA Status: Active Treatment assets and liabiliti Patient Assests: cooperative, ADL independent, negotiates basic needs, cognitively intact Patient Liabilities: financial problems, substance abuse (Hx of Cocaine, Marijuana, Percocet, PCP use) - Milieu Protocol Maintain good personal hygiene: daily Encourage regular showers, daily Remind patient to perform daily oral care, every shift Assist patient to perform ADL's Conduct patient checks and document Observation sheet: Q15 minutes Maintain personal safety: every shift Educate patient to report safety concerns to staff, every shift Monitor environment for contraband/sharps Medication safety: Monitor for expected outcome, potential side effects: every shift, Assess barriers to learning: every shift, Assess readiness for medication education: every shift
--- NOTE | 2018-10-03 12:00 | PCM.PSYCH ---
Initial Psychiatric Evaluation - Initial Psychiatric Evaluation Type of Admission: Voluntary Legal Status: Capacity History of Present Illness and Precipitating Events: Pt. is a 38 y/o unemployed male that came to ED feeling suicidal with a plan to OD on pills. Pt. reports that he feels tired and is giving up on life because he is not able to overcome his drug addiction. Pt. reports that he is unemployed and the little money he gets; he uses to buy drugs. Pt. reports that he has two grown adult children and feels ashamed because he is a drug addict. 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 Pt. reports that he lives with his brother and uncle and feels that they are getting tired of him not contributing to the household expense. Pt. reports that he has not attended any drug residential treatment because he is not able to overcome his drug problem on his own. Pt. was evasive and guarded during this assessment. Pt. mood was depressed and affect was constricted. Pt. had a full enriquez and his appearance was well groomed. Pt. was alert and oriented x3. Pt. expressed suicidal ideation with a plan to OD on pills. Pt. denied any homicidal ideation. Pt. also denied any A/V/T hallucination. Current Medications: Active Medications Generic Name Dose Route Start Last Admin Trade Name Freq PRN Reason Stop Dose Admin Influenza Virus Vaccine 60 mcg 10/07/18 10:00 Flucelvax Quad [id number] Syr IM 10/07/18 10:01 .ONCE ONE Pneumococcal Polyvalent Vaccine 0.5 ml 10/07/18 10:00 Pneumovax 23 Vaccine IM 10/07/18 10:01 .ONCE ONE Past Psychiatric History - Past Psychiatric History Pertinent Medical Hx (Current Medical&Sleep Prob, Allergies): Allergies Allergy/AdvReac Type Severity Reaction Status Date / Time No Known Allergies Allergy Verified 10/03/18 00:13 No Known Home Med 05/19/18
[2018-10-04 06:28] VITALS: BP 122/75; PULSE 52; TEMP 98.6
--- NOTE | 2018-10-04 10:02 | PCM.PYCHDC ---
Mental Status Examination - Mental Status Examination Orientation: Person, Place, Situation, Time Memory: Intact Speech: Loud, Pressured Attention: WNL Association: WNL Fund of Knowledge: WNL Formal Thought Process: No Impairment Description of patient's judgement and insight: partially impaired Psychotic Thoughts and Behaviors: denies any AVH Suicidal Ideation: No Current Homicidal Ideation?: No Discharge Summary - Discharge Note Consultations:: List each consultation separately and include: 1. Reason for request. 2. Findings. 3. Follow-up Summary of Hospital Course include:: 1. Description of specific treatment plan utilized for patients during their course of treatmen. 2. Summarize the time- course for resolution of acute symptoms and/or regressed behaviors. 3. Describe issues identified and worked on during hospitalization. 4. Describe medication utilized. 5. Describe medical problems identified and treated. 6. Reassessment of suicide risk Summary of Hospital Course: Pt. is a 38 y/o unemployed male that came to ED feeling suicidal with a plan to OD on pills. Pt. reports that he feels tired and is giving up on life because he is not able to overcome his drug addiction. Pt. reports that he is unemployed and the little money he gets; he uses to buy drugs. Pt. reports that he has two grown adult children and feels ashamed because he is a drug addict. 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 Pt. reports that he lives with his brother and uncle and feels that they are getting tired of him not contributing to the household expense. Pt. reports that he has not attended any drug residential treatment because he is not able to overcome his drug problem on his own. Pt. was evasive and guarded during this assessment. Pt. mood was depressed and affect was constricted. Pt. had a full enriquez and his appearance was well groomed. Pt. was alert and oriented x3. Pt. expressed suicidal ideation with a plan to OD on pills. Pt. denied any homicidal ideation. Pt. also denied any A/V/T hallucination. - Final Diagnosis (DSM 5) Condition upon Discharge: STABLE Disposition: AGAINST MEDICAL ADVICE
[2018-10-07] MEDS ORDERED: Influenza Vaccine 60 mcg/0.5 mL SYR (4YR UP) IM ONE (10:00)
[2018-10-07] MEDS ORDERED: Pneumococcal 23-Valent Vaccine IM ONE (10:00)
== END 2018-10-04 10:45 | disposition left against medical advice (07) | DRG 881 ==
LOC: SUPCPDRO 23:46 → C.ER 23:46 → C.5E 10-03 05:22
PROVIDERS: ADMIT Psychiatry & Neurology Psychiatry; ATTEND Psychiatry & Neurology Psychiatry
DX: F32.9 Major depressive disorder, single episode, unspecified (principal); F14.20 Cocaine dependence, uncomplicated; R45.851 Suicidal ideations; Z56.0 Unemployment, unspecified